=== PATIENT | female | born 1970 | race Caucasian/White ===

== ENCOUNTER 2023-10-18 13:21 | Emergency (ER) | payer BC, SELFPAY ==
[2023-10-18 13:23] VITALS: BP 165/80
[2023-10-18 13:44] LABS: % Basophils 0.4 % (0-2); % Eosinophils 0.4 % (0-6); % Immature Granulocytes 0.4 % (0-0.5); % Lymphocytes 13.1 % (20.5-51.1); % Monocytes 6.2 % (1.7-9.3); % Neutrophils 79.5 % (42.2-75.2); Absolute Lymphocytes 1.5 10^3/uL (1.2-3.4); Absolute Monocytes 0.7 10^3/uL (0.1-0.6); Absolute Neutrophils 8.9 10^3/uL (1.4-6.5); Hematocrit 39.9 % (37.0-47.0); Hemoglobin 13.8 g/dL (12.0-16.0); Mean Corp Hgb Conc. 34.6 g/dL (33.0-37.0); Mean Corpuscular Hgb 30.3 pg (27.0-31.0); Mean Corpuscular Volume 87.5 fL (81.0-99.0); Mean Platelet Volume 8.3 fL (7.4-10.4); Nucleated Red Blood Cells % 0 %; Platelet Count 385 10^3/uL (130-400); Red Blood Cell Count 4.56 10^6/uL (4.20-5.40); Red Cell Dist. Width 12.3 % (11.5-14.5); White Blood Cell Count 11.2 10^3/uL (4.8-10.8)
[2023-10-18 13:58] LABS: COVID-19 Antigen Negative (Negative)
--- NOTE | 2023-10-18 14:16 | ED.GENMED ---
History of Present Illness
General
Chief Complaint: Cold/Flu/URI Symptoms
Source: patient
Time Seen by Provider: 10/18/23 13:57
Travel History
Have you had any contact with someone who has COVID-19?: No
Do you have any symptoms of coronavirus? Fever > 100 degrees, chills, cough, shortness of breath, sore throat, loss of taste or smell, muscle aches, or headache?: No
History of Present Illness
History of Present Illness:
53-year-old female with past medical history of IBS presenting the emergency department at the request of her primary care provider for evaluation of cough that started 9 days ago and has been persistent since. Patient states she had no prodromal
symptoms or other symptoms that led up to the cough. Notes that she had a son at home who was flu positive and patient was thought to have the flu as well so was treated with Tamiflu but has not had any relief of symptoms she was also prescribed
cough medications which she was taking without any relief and states that she believes the medication caused her to experience some lightheadedness/vertigo and had nausea and vomiting yesterday. Patient states the cough will be intermittently
productive but for the most part is dry. She states is if she feels that she needs to cough sputum up but was unable to do so. She has no DVT/PE risk factors. Social history was noncontributory for smoking. She denies any fevers, chills, rigors,
lower extremity edema, or any other concerns.
Past History
Past History
ED Past Medical History: Other (Headache, IBS)
ED Past Surgical History: Gynecological and Orthopedic
Social History
Tobacco: Non-smoker
Alcohol: None
Drug: None
Personal:
Living: with family
Review of Systems
Review of Systems
All Other Systems: ROS reviewed and negative except as documented in HPI and ROS
Phy Exam
Physical Exam
Physical Exam:
GENERAL: Alert , in no apparent distress
EYE: conjunctiva clear
NECK: Supple, no significant adenopathy.
ENT: o/p clr, mmm.
CARDIA tachycardic rate and rhythm, no murmur
LUNGS: Clear breath sounds bilaterally, no acute respiratory distress, no wheezes/rales/rhonchi, persistent nonproductive cough noted
NEUROLOGICAL: Alert and oriented
SKIN: Warm and dry, skin intact.
MUSCULOSKELETAL: well perfused.
PSYCH: Normal and appropriate interaction.
Scores
Heart Failure Risk
Heart Failure Risk Score: Not Applicable
Heart Score for Chest Pain Patients
STEMI patient?: Not applicable
Withdrawal Assessment of Alcohol
Withdrawal Assessment Completed?: Not applicable
Course
Orders/Labs/Results
Orders:
Orders
10/18/23 13:27
EKG [Electrocardiogram (*1)] Urgent
Reason for Study: Vertigo / Dizzy
EKG- Treatment ONCE
10/18/23 13:36
CBC/With Diff [Complete Blood Count/With Diff] Urgent
CMP [Comprehensive Metabolic Panel] Urgent
COVID-19 Antigen Urgent
Source: Nasal Swab
INF RAPID [Influenza A+B Rapid Molecular] Urgent
BETSEY Source: Nasal Swab
Specimen Description:
10/18/23 14:43
Potassium Chloride [KCl] 20 meq PO NOW STA
10/18/23 15:14
D-Dimer Urgent
10/18/23 15:45
CT Chest Pe Study Urgent
Comment:
Reason For Exam: cough, elevated d-dimer
10/18/23 16:49
Doxycycline [Vibramycin] 100 mg PO NOW STA
Abnormal Lab Results
10/18/23 10/18/23
13:36 15:14
WBC 11.2 H 10^3/uL
(4.8-10.8)
Absolute Neuts (auto) 8.9 H 10^3/uL
(1.4-6.5)
Absolute Monos (auto) 0.7 H 10^3/uL
(0.1-0.6)
Neutrophils % 79.5 H %
(42.2-75.2)
Lymphocytes % 13.1 L %
(20.5-51.1)
D-Dimer 2.34 H ug/mlFEU
(0.00-0.50)
Potassium 3.3 L mmol/L
(3.5-5.1)
Chloride 97 L mmol/L
(98-107)
Glucose 157 H mg/dl
(70-99)
10/18/23 13:36
10/18/23 13:36
Vital Signs
Initial and Last Documented VS:
Initial Vital Signs
Temp Pulse Resp BP Pulse Ox
98.2 F 130 20 165/80 96
10/18/23 13:23 10/18/23 13:23 10/18/23 13:23 10/18/23 13:23 10/18/23 13:23
Last Documented Vital Signs
Temp Pulse Resp BP Pulse Ox
98.2 F 130 20 165/80 96
10/18/23 13:23 10/18/23 13:23 10/18/23 13:23 10/18/23 13:23 10/18/23 13:23
MDM/Problems Addressed
Differential Diagnosis Includes:
Pneumonia, bronchitis, PE
MDM/Problems Addressed:
53-year-old female present emergency department for evaluation after experiencing 9 days of cough, symptoms seem to be worsening despite cough suppressants prescribed by primary care provider. Patient arrives to the emergency department tachycardic
and persistent coughing was noted. Lung sounds are otherwise clear. Lab work and EKG were done in triage. I did add on a D-dimer for PE although patient's risk factors are pretty minimal outside of her age. Likely plan for initiation of
antibiotic, steroids and inhalers. Disposition pending. Imaging also pending D-dimer result you should
*Radiology
Radiology exam reviewed: radiology read reviewed
*Pulse Oximetry
Patient hypoxic: no
*EKG
Interpreted by ED Provider?: Yes
Heart Rate: 110
Rate: tachycardiac
Rhythm: sinus
[place]: normal axis
Ischemia: no ischemia
*Bad Cloth Checker Interpretation
Rate: tachycardiac
Rhythm: sinus
*Critical Care Note
Total Time (30-74mins, 75-104mins- exclusive of procedures): Not Applicable
Comment
Comment:
Patient's D-dimer did come back elevated at 2.34. A CTA of the chest was added for PE rule out
Patient Management
Escalation/DeEscalation of care consider admission/obs:
Patient CT scan shows a moderate left-sided pneumonia. Her oxygen remains normal on room air and she is in no acute cardiopulmonary distress. Prescription for doxycycline will be provided. Also sent patient a prescription for albuterol inhaler to
use as needed. She will follow-up with primary care physician and will need repeat x-ray to ensure resolution of CT findings. Aware of return precautions but otherwise stable for discharge home
ED Attending Note
-
Portions of this chart may have been created with voice recognition software.� Occasional wrong word or��sound alike� substitutions may have occurred due to the inherent limitations of voice recognition software.
Discharge Plan
Departure
Patient Disposition: Home (Routine Discharge)
Date of Disposition: 10/18/23
Time of Disposition: 16:50
Patient with high blood pressure during this ER visit?: Yes
Discharge Problem:
Pneumonia involving left lung
Instructions: Pneumonia, Adult (DC)
Prescriptions:
New
doxycycline hyclate 100 mg tablet
100 mg PO BID Qty: 19 0RF
albuterol sulfate 90 mcg/actuation HFA aerosol inhaler
2 puff inhalation Q6H PRN (Reason: shortness of breath or wheezing) Qty: 6.7 0RF
No Action
pediatric multivitamin [Flintstones Multivitamin] 1 TAB.CHEW tablet,chewable
1 tab.chew PO
Referrals:
Blas Sun, DO [Family Provider] -
Interventions
Interventions:
*Risk Screen - Suicide Last Done: 10/18/23 13:23
*General Assessment Last Done: 10/18/23 13:23
*Neglect/Abuse Screening Last Done: 10/18/23 13:23
*ED COVID-19 Vaccine History Last Done: 10/18/23 13:23
ED- Pulmonary Assessment Last Done: 10/18/23 15:15
Discharge Date and Time
Print Language: SLOVENIAN
[2023-10-18 14:36] LABS: Blood Urea Nitrogen 12 mg/dl (7-17); Glucose 157 mg/dl (70-99); eGFR > 60.00
[2023-10-18 14:37] LABS: Albumin 4.3 g/dl (3.5-5.0); Alkaline Phosphatase 77 U/L (38-126); Calcium 9.1 mg/dl (8.4-10.2); Carbon Dioxide 30 mmol/L (22-30); Chloride 97 mmol/L (98-107); Potassium 3.3 mmol/L (3.5-5.1); Sodium 135 mmol/L (135-145); Total Protein 7.2 g/dl (6.3-8.2)
[2023-10-18 14:38] LABS: ALT (SGPT) 21 U/L (0-35); AST (SGOT) 33 U/L (14-36); Total Bilirubin 0.6 mg/dl (0.2-1.3)
[2023-10-18 15:04] VITALS: BMI 25.8
[2023-10-18 15:28] LABS: Estimated Creatinine Clearance 75 ml/min
[2023-10-18 15:43] LABS: D-Dimer 2.34 ug/mlFEU (0.00-0.50)
[2023-10-18] MEDS: KCL 20 MEQ PO (16:19)
[2023-10-18] MEDS: VIBRAMYCIN 100 MG PO (17:05)
[2023-10-18 17:37] VITALS: BP 141/78
== END 2023-10-18 17:15 | disposition home or self-care (01) ==
LOC: EMR 13:21
PROVIDERS: Emergency Medicine; Physician Assistant Medical; EMERGENCY PHYSICIAN Emergency Medicine; FAMILY PHYSICIAN Family Medicine
DX: J18.9 Pneumonia, unspecified organism (principal); R03.0 Elevated blood-pressure reading, without diagnosis of hypertension; Z11.52 Encounter for screening for COVID-19
CPT/HCPCS: 99285; 71275; 80053; 85025; 85379; 87502; 87811; 93005; Q9967

== ENCOUNTER → 2024-03-04 06:37 | Outpatient (REF) | payer BC, SELFPAY | LOC: MRI 06:37 | PROVIDERS: ATTENDING PHYSICIAN Orthopaedic Surgery Sports Medicine; FAMILY PHYSICIAN Student in an Organized Health Care Education/Training Program | DX: M25.551 Pain in right hip (principal); Q65.89 Other specified congenital deformities of hip | CPT/HCPCS: 73721 ==